=== PATIENT | female | born 1980 | race Caucasian/White ===

== ENCOUNTER 2020-06-10 22:17 | Emergency (ER) | payer OTHER, SELFPAY ==
--- NOTE | 2020-06-10 22:24 | ED.ALLEREA ---
HPI - Allergic Reaction General Chief complaint: Allergic Reaction Stated complaint: ALLERGIC REACTION Time Seen by Provider: 06/10/20 22:23 Source: patient Mode of arrival: ambulatory Limitations: no limitations History of Present Illness HPI narrative: 39 yo female otherwise healthy has had prior hives before but not to this degree, no prior epi, no varnish finisher workup, unknown cause of symptoms cannot pinpoint no family history - took 2 benadryl [employer] complaint: allergic reaction, hives and facial swelling Onset (ago): hour(s) (3) Exposure: unknown Symptoms: rash, itching, facial swelling, lip swelling and hoarseness Severity: severe Treatment prior to arrival: benadryl Previous Allergic Reaction History: prior ED visit(s) (1, usually responds to benadryl at home, has not had epi before) Related Data Previous Rx's Medication Instructions Recorded epinephrine 0.3 mg IM Q10M PRN #2 ea 06/10/20 prednisone 40 mg PO DAILY 5 Days #10 tab 06/10/20 Allergies Allergy/AdvReac Type Severity Reaction Status Date / Time No Known Allergies Allergy Verified 06/10/20 22:23 Review of Systems Review of Systems: Constitutional : No Fever, No Chills ENT/Mouth : positive oral swelling, pos Hoarseness, No Swallowing Difficulty Eyes: No Eye Pain, pos Swelling, No Redness Cardiovascular : No Chest Pain, No SOB Respiratory : No Cough, No Sputum, No Wheezing, No Smoke Exposure, No Dyspnea Gastrointestinal : No Nausea, No Vomiting, No Diarrhea, No abdominal Pain Genitourinary : No Dysuria, No Urinary Frequency, No Hematuria Musculoskeletal : No joint pain, No Myalgias, No Joint Swelling Skin : No Skin Lesions, positive rash Neuro : No Weakness, No Numbness, No Headache Psych : No Anxiety/Panic, No Depression Heme/Lymph: No Bruising, No Lymphadenopathy Endocrine : No Polyuria, No Polydipsia All other systems reviewed and are negative [facility] Past Medical History Attestation statement: The following information was validated with the patient. Medical History Idiopathic urticaria Social History Social History (Updated 06/10/20 @ 22:56 by Michelle Linton DO) Smoking Status: Never smoker Use of substances other than those prescribed or required for medical reasons: No Advance Directives: No Advance Directives Information Provided: No Physical Exam Vital Signs: Vital Signs: Last Vital Signs Pulse 86 06/11/20 00:00 Resp 16 06/11/20 00:00 BP 140/89 H 06/11/20 00:00 Pulse Ox 98 06/11/20 00:00 Body Mass Index 40.3 Appearance: Alert. Oriented X3. Anxious mild acute distress. Eyes: Pupils equal, round and reactive to light. mild swelling of periorbital areas - diffuse erythema ENT: Pharynx bilateral swollen lips - mild, no intra oral swelling Neck: Normal inspection. Neck supple. no stridor CVS: tachycardic heart rate and rhythm. Pulses normal. Respiratory: No respiratory distress. Breath sounds normal. Abdomen: Soft and nontender. Skin: Skin warm and dry. Diffuse hives above waist - entire trunk/neck/face Extremities: No lower extremity edema. No calf ttp Neuro: Oriented X 3. No motor deficit. No sensory deficit. Course Course Course Narrative: facial swelling and erythema almost resolved after epi patient is doing much better observed x 2 hours, the patient is drastically improved at this time, stable for DC MDM - Allergic Reaction MDM Narrative Medical decision making narrative: 39 yo female with hx of 3 prior reactions that have unknown cause - usually responds to home benadryl, she does not have allergies and unsure what precipitates these events, no fam hx, has not seen varnish finisher, she has diffuse upper body hives swelling of face and lips, scratchy throat - onset 3 hours ago at this time IM epi, IV steroids, IV pepcid ordered, will need to be observed at this time Critical Care Time Critical Care Time Critical Care Time: Yes Total Critical Care Time: 35 Attestation: IM epi, observation for anaphylaxis I attest to this time spent taking care of the patient Discharge Plan Discharge Clinical Impression: Anaphylaxis Qualifiers: Encounter type: initial encounter Qualified Code(s): T78.2XXA - Anaphylactic shock, unspecified, initial encounter Patient Disposition: Home, Self-Care Instructions: Anaphylaxis (ED) Additional Instructions: return to ED for any worsening symptoms or concerns PLEASE SEE AN ENSEMBLE MEMBER, YOU MIGHT WANT TO KEEP A FOOD LIST Prescriptions: New prednisone 20 mg tablet 40 mg PO DAILY 5 Days Qty: 10 RF: 0 epinephrine 0.3 mg/0.3 mL auto-injector 0.3 mg IM Q10M PRN (Reason: anaphylaxis) Qty: 2 RF: 0 Stand Alone Forms: Work/School Release
[2020-06-10 22:28] VITALS: BP 144/95; PULSE 117
[2020-06-10] MEDS: EPINEPHrine 1 MG/ML VIAL 0.3 MG IM (22:28)
[2020-06-10] MEDS: methylPREDNISolone Sod Succ/PF 125 MG/2 ML VIAL IVPUSH (22:33)
[2020-06-10] MEDS: Famotidine/PF 20 MG/2 ML VIAL IVPUSH (22:33)
[2020-06-10 22:34] VITALS: BP 155/101; PULSE 98; RESP 16; O2SAT 96; BMI 40.3
[2020-06-10] MEDS: 0.9 % Sodium Chloride 1,000 ML 999 ML IVCONT (22:34)
[2020-06-10 23:40] VITALS: BP 149/92; PULSE 100; RESP 16; O2SAT 98
--- NOTE | 2020-06-10 23:40 | PC.NURSE ---
PT STATES IM FEELING MUCH BETTER . VS OBTAINED. REDNESS IS ALMOST GONE, SLIGHT SWELLING AROUND EYES STILL APPARENT. PT DENIES SOB OR BREATHING DIFFICULTY. WILL CONTINUE TO MONITOR PT.
[2020-06-11] VITALS: BP 140/89; PULSE 86; RESP 16; O2SAT 98
--- NOTE | 2020-06-11 00:19 | PC.NURSE ---
UP AND AMBULATES WITH STEADY GAIT TO RESTROOM. PT DENIES ANY COMPLAINTS AT THIS TIME. PT REMAINS ALERT, RESPIRATIONS EASY, N/L, SKIN W/D. PT AWAITING FOR DISCHARGE.
== END 2020-06-11 00:30 | disposition home or self-care (01) ==
LOC: HO.ED 23:12
PROVIDERS: Emergency Provider Emergency Medicine; PCP Nurse Practitioner Adult Health
DX: L27.1 Localized skin eruption due to drugs and medicaments taken internally (principal); L50.9 Urticaria, unspecified; T88.6XXA Anaphylactic reaction due to adverse effect of correct drug or medicament properly administered, initial encounter; Z79.899 Other long term (current) drug therapy
CPT/HCPCS: 96361; 96372; 96374; 96375; 99283; 99291; J0171; J2930

== ENCOUNTER 2021-05-09 19:28 | Emergency (ER) | payer SELFPAY ==
--- NOTE | ~2021-05-09 | XR_ITS ---
EXAMINATION: XR FINGER, LEFT CLINICAL INFORMATION: Deep laceration to left index finger COMPARISON: None TECHNIQUE: 3 views of the left index finger. FINDINGS: Soft tissue swelling is present overlying the region of the proximal phalanx of the index finger. The bones are normal. No fracture. Alignment is anatomic. Joint spaces are maintained. No radiopaque foreign body. XR/XR finger LT min 2V IMPRESSION: Soft tissue swelling with no osseous abnormality seen.
[2021-05-09 19:46] VITALS: BP 134/86; PULSE 96; RESP 16; TEMP 36.7; O2SAT 97; BMI 35.7
[2021-05-09] MEDS: Lidocaine HCl 2 % MPF 5 ML VIAL INFILTRATI ×2 (21:17→21:18)
[2021-05-09] MEDS: Diphth,Pertus(ACell),Tet Adult 0.5 ML SYRINGE IM (21:18)
--- NOTE | 2021-05-09 21:20 | ED_ITS ---
HPI - Wound/Laceration General Chief Complaint: Wound/Laceration Stated Complaint: left hand laceration Time Seen by Provider: 05/09/21 20:40 Source: patient Mode of arrival: ambulatory Limitations: no limitations History of Present Illness HPI narrative: 40-year-old female presents to ED for left index finger lacer ation. Patient states she cut her finger while using apple slicer. Patient states having complete movement of finger and denies any numbness/tingling of fingers. Patient denies any other trauma. Related Data Previous Rx's Medication Instructions Recorded epinephrine 0.3 mg/0.3 mL 0.3 mg (0.3 mL) IM Q10M PRN #2 ea 06/10/20 injection, auto-injector prednisone 20 mg tablet 40 mg PO DAILY 5 Days #10 tab 06/10/20 cephalexin 500 mg capsule 500 mg PO QID 7 Days #28 cap 05/09/21 naproxen 500 mg tablet 500 mg PO BID PRN 10 Days #20 tab 05/09/21 Allergies Allergy/AdvReac Type Severity Reaction Status Date / Time peanut Allergy Swelling Verified 05/09/21 20:01 Review of Systems Review of Systems: Left hand index finger laceration Yes all other systems are reviewed and are negative PMFSH Past Medical History Medical History Idiopathic urticaria Social History Social History (Updated 06/10/20 @ 22:56 by Michelle Linton DO) Advance Directives: No Advance Directives Information Provided: Yes Patient : No Physical Exam Vital Signs: Vital Signs: Last Vital Signs Temp 98.1 F 05/09/21 19:46 Pulse 96 05/09/21 19:46 Resp 16 05/09/21 19:46 BP 134/86 05/09/21 19:46 Pulse Ox 97 05/09/21 19:46 BMI result Body Mass Index 35.7 Const: General: cooperative, healthy appearing, comfortable, no acute distress, well developed, alert, awake and Physically active Orientation/consciousness: patient oriented x3 HENMT: Head: Yes normal to inspection, Yes No palpable skull fracture present, Yes normocephalic and Yes atraumatic Eyes: General: appearance normal, both eyes and all related structures Neck: Neck: Yes normal visual inspection, Yes full ROM, Yes no lymphadenopathy, Yes no meningeal signs, Yes trachea midline, Yes supple, No anterior neck swelling and No tender Chest: Chest palpation & inspection: normal inspection of the chest and normal palpation of entire chest wall Resp: Effort & Inspection: normal respiratory effort and able to speak in complete sentences Auscultation: clear to auscultation bilaterally Cardio: Jugular venous distension: no JVD Heart sounds: S1 normal heart sound present and S2 normal heart sound present GI: Inspection: Yes normal to inspection and No abdominal wall ecchymosis Palpation (GI): Soft to palpation, not firm, nontender, no guarding and not rigid Skin: General skin exam: no rashes or lesions noted and elasticity normal Neuro: General: patient oriented x3, gait normal, no meningeal signs and CN's II-XI intact bilaterally Cranial nerves: Yes CN's II-XII intact bilaterally Extrem: General: Yes normal to inspection and Yes full ROM Hand/finger images: 1. Positive for laceration. Negative for tenderness on palpation. Mild active bleeding. Patient has complete flexion and extension of finger. Capillary refills intact. Neuro/motor/vascular exam of finger intact. rest of extremity is normal and motor/neuro/vascular exam of rest of extremity intact. All fingers are normal. Psych: Appearance: grossly normal, well kempt and not disheveled Course Course Course Narrative: Patient sent for hand x-ray. Will proceed with laceration repair Reevaluation(s) Reevaluation #1: Wound clearance sterile saline and Betadine iodine. Local anesthesia done with 5 mL of lidocaine 2%. Size 3 nylon suture used. Four sutures placed. Patient has complete range of motion of finger. X-ray negative for any fracture. Patient will be discharged with antibiotic. Time: 22:40 MDM - Wound/Laceration MDM Narrative Medical decision making narrative: Finger laceration Discharge Plan Discharge Clinical Impression: Laceration Patient Disposition: Home, Self-Care Instructions: Finger Laceration (ED) Additional Instructions: X-ray came back negative for fracture. Physical exam negative for any Tendon or nerve injury. Return to the ED immediately for any swelling, redness, pus discharge, foul odor, fever, chills, bluish black discoloration, or any other concerning symptoms. Keep wound dry the 1st 48 hours. Sutures should be removed in 8 days. Prescriptions: New cephalexin 500 mg capsule 500 mg PO QID 7 Days Qty: 28 RF: 0 naproxen 500 mg tablet 500 mg PO BID PRN (Reason: pain) 10 Days Qty: 20 RF: 0 No Action prednisone 20 mg tablet 40 mg PO DAILY 5 Days Qty: 10 RF: 0 epinephrine 0.3 mg/0.3 mL auto-injector 0.3 mg IM Q10M PRN (Reason: anaphylaxis) Qty: 2 RF: 0 Stand Alone Forms: Work/School Release Interventions: ED Discharge Assessment Last Done: 05/09/21 23:10 Discharge Date/Time: 05/09/21 23:11 Print Language: Jordanian
[2021-05-09] MEDS: Ibuprofen 800 MG TABLET PO (22:59)
== END 2021-05-09 23:11 | disposition home or self-care (01) ==
PROVIDERS: Emergency Provider Emergency Medicine; PCP Nurse Practitioner Adult Health
DX: S61.211A Laceration without foreign body of left index finger without damage to nail, initial encounter (principal); W26.8XXA Contact with other sharp object(s), not elsewhere classified, initial encounter; Y93.G1 Activity, food preparation and clean up; Y92.010 Kitchen of single-family (private) house as the place of occurrence of the external cause; Y99.9 Unspecified external cause status
CPT/HCPCS: 12001; 73140; 90471; 90715; 99284